=== PATIENT | male | born 1930 | race Caucasian/White ===

== ENCOUNTER 2019-01-04 10:11 | Emergency (ER) | payer MEDICARE ==
[2019-01-04] MEDS ORDERED: Sodium Chloride 0.9% 10 ML Syringe FLUSH PRN (10:39)
[2019-01-04 11:40] LABS: CHLORIDE,CL 87 mmol/L (98-107)
[2019-01-04 11:42] LABS: SODIUM,NA 119 mmol/L (136-145)
[2019-01-04] MEDS ORDERED: Sodium Chloride 0.9% 500 ML IV ONE (11:53)
--- NOTE | 2019-01-04 12:02 | EDM.PDOC ---
ED HPI GENERAL MEDICAL PROBLEM - General Chief Complaint: General Stated Complaint: WEEK,SORE THROAT, SLEEPS, ALOT LOW SODIUM Time Seen by Provider: 01/04/19 10:15 Source of Information: Reports: Patient - History of Present Illness INITIAL COMMENTS - FREE TEXT/NARRATIVE: She comes into the emergency department with family with complaint of weakness and fatigue. Patient has been feeling ill for the last 1-2 weeks. He states that he's been sleeping more, low energy, fatigue, not as hungry. Patient has been working worked up in the clinic in the last few days. They do not have any lab results from that. Family brought him in the emergency department this morning for he was having difficulty getting up out of his chair due to his weakness. He is also having increased amount of falls over the course the last few days due to his weakness. He and family deny any injury, loss of consciousness, chest pain or change in vision. Onset: Gradual Throat Pain Score (Numeric/FACES): 10 ED ROS GENERAL - Review of Systems Review Of Systems: See Below Constitutional: Reports: Weakness, Fatigue HEENT: Reports: No Symptoms Respiratory: Reports: Cough Cardiovascular: Reports: Dyspnea on Exertion, Lightheadedness Endocrine: Reports: Fatigue GI/Abdominal: Reports: No Symptoms : Reports: No Symptoms Musculoskeletal: Reports: No Symptoms Skin: Reports: No Symptoms Neurological: Reports: No Symptoms ED EXAM, GENERAL - Physical Exam Exam: See Below Exam Limited By: No Limitations General Appearance: Alert, WD/WN, No Apparent Distress Head: Atraumatic, Normocephalic Neck: Normal Inspection, Supple, Non-Tender, Full Range of Motion Respiratory/Chest: No Respiratory Distress, No Accessory Muscle Use, Decreased Breath Sounds, Crackles Cardiovascular: Normal Peripheral Pulses, Regular Rate, Rhythm GI/Abdominal: Normal Bowel Sounds, Soft, Non-Tender, No Distention, No Abnormal Bruit Back Exam: Normal Inspection, Full Range of Motion Extremities: Normal Inspection, Normal Range of Motion, Normal Capillary Refill Neurological: Alert, Oriented Psychiatric: Normal Affect, Normal Mood Skin Exam: Warm, Dry, Intact, Normal Color Course - Vital Signs Last Recorded V/S: Last Vital Signs Temp 36.1 C 01/04/19 10:20 Pulse 97 01/04/19 10:20 Resp 24 H 01/04/19 10:20 BP 139/83 01/04/19 10:20 Pulse Ox 98 01/04/19 10:20 - Orders/Labs/Meds Orders: Active Orders 24 hr Category Date Time Status Cardiac Monitoring [RC] . DIRECTED Care 01/04/19 10:39 Active EKG Documentation Completion [RC] STAT Care 01/04/19 10:39 Active Chest 1V Frontal [CR] Stat Exams 01/04/19 10:47 Ordered CULTURE STREP A CONFIRMATION [] Stat Lab 01/04/19 10:25 Results STREP SCRN A RAPID W CULT CONF [RM] Stat Lab 01/04/19 10:25 Results Furosemide [Lasix] Med 01/04/19 12:23 Once 40 mg IV ONETIME ONE Sodium Chloride 0.9% [Normal Saline] 500 ml Med 01/04/19 11:53 Active IV ONETIME Peripheral IV Insertion Adult [OM.PC] Stat Oth 01/04/19 10:39 Ordered Medication Orders Sodium Chloride (Normal Saline) 500 mls @ 500 mls/hr IV ONETIME ONE Stop: 01/04/19 12:52 Last Admin: 01/04/19 12:06 Dose: 500 mls/hr Labs: Laboratory Tests 01/04/19 01/04/19 Range/Units 10:59 10:59 WBC 7.6 (4.0-10.0) x10^3/uL RBC 2.65 L (4.5-6.0) x10^6/uL Hgb 9.4 L (14.0-18.0) g/dL Hct 27.7 L (40.0-52.0) % MCV 104.5 H (78.0-93.0) fL MCH 35.5 H (26.0-32.0) pg MCHC 33.9 (32.0-36.0) g/dL RDW Coeff of Christina 12.3 (10.0-15.0) % Plt Count 157 (130-400) x10^3/uL Neut % (Auto) 87.3 H (50.0-80.0) % Lymph % (Auto) 5.0 L (25.0-50.0) % [place] % (Auto) 7.3 (2.0-11.0) % Eos % (Auto) 0.3 (0.0-4.0) % Baso % (Auto) 0.1 L (0.2-1.2) % Sodium 119 L* (136-145) mmol/L Potassium 5.0 (3.5-5.1) mmol/L Chloride 87 L (98-107) mmol/L Carbon Dioxide 23 (21-32) mmol/L Anion Gap 14.0 (10-20) mmol/L BUN 18 (7-18) mg/dL Creatinine 0.8 (0.70-1.30) mg/dL Est Cr Clr Drug Dosing TNP Estimated GFR (MDRD) > 60 Glucose 143 H (74-106) mg/dL Calcium 8.8 (8.5-10.1) mg/dL Corrected Calcium 9.28 (8.5-10.1) mg/dL Total Bilirubin 1.0 (0.2-1.0) mg/dL AST 24 (15-37) U/L ALT 22 (16-63) U/L Alkaline Phosphatase 62 (46-116) U/L Troponin I 0.081 H* (<=0.056) ng/mL NT-Pro-B Natriuret Pep 96355 H (<=450) pg/mL Total Protein 6.5 (6.4-8.2) g/dL Albumin 3.4 (3.4-5.0) g/dL Globulin 3.1 Albumin/Globulin Ratio 1.10 Meds: Medications Generic Name Dose Route Start Last Admin Trade Name Freq PRN Reason Stop Dose Admin Sodium Chloride 500 mls @ 500 mls/hr 01/04/19 11:53 01/04/19 12:06 Normal Saline IV 01/04/19 12:52 500 mls/hr ONETIME ONE Administration Discontinued Medications Generic Name Dose Route Start Last Admin Trade Name Freq PRN Reason Stop Dose Admin Sodium Chloride 10 ml 01/04/19 10:39 Saline Flush FLUSH ASDIRECTED PRN Keep Vein Open Departure - Departure Time of Disposition: 12:35 Disposition: DC/Tfer to Acute Hospital 02 Condition: Good Clinical Impression: CHF, Congestive heart failure, Hyponatremia - Discharge Information *PRESCRIPTION DRUG MONITORING PROGRAM REVIEWED*: Not Applicable *COPY OF PRESCRIPTION DRUG MONITORING REPORT IN PATIENT TERE: Not Applicable Referrals: Jagdish Tilley MD [Primary Care Provider] - Forms: ED Department Discharge, Interfacility Transfer EMTALA - My Orders Last 24 Hours: My Active Orders 01/04/19 10:25 CULTURE STREP A CONFIRMATION [RM] Stat STREP SCRN A RAPID W CULT CONF [RM] Stat 01/04/19 10:39 Cardiac Monitoring [RC] . DIRECTED EKG Documentation Completion [RC] STAT Peripheral IV Insertion Adult [OM.PC] Stat 01/04/19 10:47 Chest 1V Frontal [CR] Stat 01/04/19 11:53 Sodium Chloride 0.9% [Normal Saline] 500 ml IV ONETIME 01/04/19 12:23 Furosemide [Lasix] 40 mg IV ONETIME ONE - Assessment/Plan Last 24 Hours: My Active Orders 01/04/19 10:25 CULTURE STREP A CONFIRMATION [RM] Stat STREP SCRN A RAPID W CULT CONF [RM] Stat 01/04/19 10:39 Cardiac Monitoring [RC] . DIRECTED EKG Documentation Completion [RC] STAT Peripheral IV Insertion Adult [OM.PC] Stat 01/04/19 10:47 Chest 1V Frontal [CR] Stat 01/04/19 11:53 Sodium Chloride 0.9% [Normal Saline] 500 ml IV ONETIME 01/04/19 12:23 Furosemide [Lasix] 40 mg IV ONETIME ONE Assessment:: 1. CHF 2. Fluid overload 3. weakness 4. Fatigue 5. hyponatremia Plan: 1. Labs completed in ER. results reviewed with the patient 2. x-ray of ches completed in ER. Results reviewed with the patient 3. Fluids hung sparinly due to crackles in the lungs. 4. Lasix given 40mg IV to help with the fluid overload. 5. EKG completed in ER. 6. Rapid strep completed. Negative results. 7. Consultation completed with Dr. Wu who is willing to accept care of this pt for further acute care management. Pt will be transported via ambulance to higher level of care. 8. All questions addressed prior to discharge.
[2019-01-04] MEDS ORDERED: Furosemide 40 MG/4 ML VIAL IV ONE (12:23)
--- NOTE | 2019-01-04 13:44 | CR ---
[id number] RAD/RAD Chest PA or AP 1V EXAM: RAD Chest PA or AP 1V INDICATION: COUGH. COMPARISON: None. DISCUSSION: The cardiomediastinal silhouette is enlarged. Central linda vascular congestion with patchy airspace opacifications bilaterally. Small right pleural effusion. Left chest wall cardiac conduction device. IMPRESSION: Findings suggestive of congestive heart failure exacerbation. Stiven Garcia DO 01/04/19 1343 Thank you for allowing us to participate in the care of your patient.
== END 2019-01-04 14:30 | disposition short-term general hospital (02) ==
LOC: VM.ED 10:11
DX: I50.9 Heart failure, unspecified (principal); E87.1 Hypo-osmolality and hyponatremia
CPT/HCPCS: 36415; 71045; 80053; 83880; 84484; 85025; 87081; 87880; 93005; 96374; 99285; J1940; J7040

== ENCOUNTER 2019-01-14 09:25 | Inpatient (IN) | payer MEDICARE ==
--- NOTE | 2019-01-14 15:56 | PCM.HP ---
H&P History of Present Illness - General Date of Service: 01/14/19 Admit Problem/Dx: Admission Diagnosis/Problem Admission Diagnosis/Problem CHF, Congestive heart failure Source of Information: Patient, Old Records - History of Present Illness Initial Comments - Free Text/Narative: Recent is a swing bed admission to get stronger again. Would like to return to assisted living with his . Was admitted in [place] for CHF and hyponatremia. Was found to have significant reduced ejection fraction. Had significant three-vessel disease by angiogram. Did not want to undergo high risk PCI or CABG. Was given some Lasix which helped his CHF and sodium. No chest pain or dyspnea currently. Still not very strongly getting around. Has known prostate cancer as well which appears resistant to Casodex, PSA continuing to go up. Past medical history, recurrent prostate cancer, osteoarthritis, coronary artery disease, osteopenia, hypertension, bradycardia, pacemaker, atrial fibrillation, heart failure, hyponatremia. Medications: Elliquis, Lipitor, iron, Lasix, lisinopril, Toprol, aspirin, Flomax , Ditropan, Casodex, prolia, Lupron. No known drug allergies Family history noncontributory Does not smoke, lives with . Previous systems: Denies fever denies cough denies chest pain denies abdominal pain denies vomiting denies dysuria denies peripheral edema Vital signs stable alert oriented male no acute distress somewhat ashen, heart regular rate and rhythm no murmurs or gallops, lungs are clear bilaterally. Abdomen soft nontender, extremities warm well perfused without edema. 1. Acute on chronic systolic heart failure with underlying triple-vessel disease. Declined PCI/CABG. Conservative management with medication. Continue with lisinopril 2.5 mg twice daily.Was started on Metoprolol ER.Continue with lisinopril and diuresis and see how he does. 2. Atrial fibrillation, on apixaban. V-paced. 3. Coronary artery disease, on aspirin 81 mg daily. 4. Dyslipidemia, on Lipitor 40 mg daily, continue. 5. Coronary artery disease.ASA, BB, STATINS 6. BPH, on tamsulosin, continue. 7. History of prostate cancer, on Casodex, continue. PSA continued to go up. 8. Hyponatremia improved, likely combo of CHF, meds, age, CA. Monitor. 9. Consult SW re: palliative care. Unclear if meets hospice criteria yet for Dx of CHF, CAD, CA. 10. Consult PT for strength. - Related Data Allergies/Adverse Reactions: Allergies Allergy/AdvReac Type Severity Reaction Status Date / Time No Known Allergies Allergy Verified 01/14/19 09:35 Home Medications: Home Meds Acetaminophen 650 mg PO Q6H PRN 01/14/19 [History] Apixaban [Eliquis] 5 mg PO BID 01/14/19 [History] Aspirin [Halfprin] 81 mg PO DAILY 01/14/19 [History] Bicalutamide [Casodex] 50 mg PO DAILY 01/14/19 [History] Calcium Citrate/Vitamin D3 [Citracal + D Maximum Caplet] 1 each PO BID 01/14/19 [History] Cholecalciferol (Vitamin D3) [Vitamin D3] 1,000 unit PO DAILY 01/14/19 [History] Cyanocobalamin (Vitamin B-12) [Vitamin B-12] 500 mcg PO DAILY 01/14/19 [History] Docusate Sodium 200 mg PO DAILY 01/14/19 [History] Ferrous Sulfate 325 mg PO BID 01/14/19 [History] Furosemide 60 mg PO BID 01/14/19 [History] Gluc 2KCl/Chondr/Conner Hy/Hy Ac [Glucosamine & Chondroitin Cap] 1 tab PO TID [History] Lisinopril 2.5 mg PO BID 01/14/19 [History] Metoprolol Succinate [Toprol XL] 12.5 mg PO DAILY 01/14/19 [History] [place]-3 Fatty Acids/Fish Oil [Fish Oil 1,000 mg Softgel] 1 each PO TID 01/14/19 [History] Oxybutynin 5 mg PO BEDTIME 01/14/19 [History] Tamsulosin [Tamsulosin 24 Hr] 0.4 mg PO DAILY 01/14/19 [History] Ubidecarenone [Co Q-10] 200 mg PO DAILY 01/14/19 [History] Vitamin B6-pyridOXINE [Vitamin B6] 50 mg PO DAILY 01/14/19 [History] atorvaSTATin [Lipitor] 40 mg PO BEDTIME 01/14/19 [History] Past Medical History HEENT History: Reports: Glaucoma Cardiovascular History: Reports: CAD, Heart Failure, High Cholesterol, Hypertension, Pacemaker, Stents, Other (See Below) Other Cardiovascular History: bradycardia Genitourinary History: Reports: Prostate Disorder, Other (See Below) Other Genitourinary History: urinary frequency; lower urinary tract symptoms Musculoskeletal History: Reports: Osteoarthritis, Other (See Below) Other Musculoskeletal History: lower knee pain; osteopenia Endocrine/Metabolic History: Reports: Osteopenia Oncologic (Cancer) History: Reports: Prostate Dermatologic History: Reports: Other (See Below) Other Dermatologic History: actinic keratosis - Infectious Disease History Infectious Disease History: Reports: MRSA - Past Surgical History HEENT Surgical History: Reports: Cataract Surgery Cardiovascular Surgical History: Reports: Coronary Artery Stent, Other (See Below) Other Cardiovascular Surgeries/Procedures: angioplasty Male Surgical History: Reports: Prostate Biopsy, Other (See Below) Other Male Surgeries/Procedures: breast biopsy Social & Family History - Tobacco Use Smoking Status *Q: Never Smoker Second Hand Smoke Exposure: No - Caffeine Use Caffeine Use: Reports: Coffee - Alcohol Use Days Per Week of Alcohol Use: 7 Number of Drinks Per Day: 1 Total Drinks Per Week: 7 - Recreational Drug Use Recreational Drug Use: No H&P Review of Systems - Review of Systems: Review Of Systems: See Below Exam - Exam Exam: See Below - Vital Signs Vital Signs: Last Vital Signs Temp 36.6 C 01/14/19 11:31 Pulse 65 01/14/19 11:31 Resp 32 H 01/14/19 11:31 BP 102/58 L 01/14/19 11:31 Pulse Ox 97 01/14/19 11:31 Weight: 90.945 kg Problem List Initiated/Reviewed/Updated: Yes Orders Last 24hrs: Active Orders 24 hr Category Date Time Status Admission Status [Patient Status] [ADT] Routine ADT 01/14/19 09:31 Active Activity as Tolerated [RC] .Routine Care 01/14/19 12:38 Active OT Evaluation and Treatment [CONS] Routine Cons 01/14/19 09:34 Active PT Evaluation and Treatment [CONS] Routine Cons 01/14/19 09:33 Active Fluid Restriction [DIET] Diet 01/14/19 Lunch Active Heart Healthy Diet [DIET] Diet 01/14/19 Lunch Active Code Status [Resuscitation Status] Routine Resus Stat 01/14/19 12:39 Ordered
[2019-01-14] MEDS: Apixaban 2.5 MG Tab PO SCH (19:17)
[2019-01-14] MEDS: Fish Oil/Omega-3 Fatty Acids 1 Gm Cap PO SCH (19:18)
[2019-01-14] MEDS: Multivitamin, Stress Formula with Zinc Tab PO SCH (19:18)
[2019-01-14] MEDS: Oxybutynin 5 MG Tab PO SCH (19:18)
[2019-01-14] MEDS: Lisinopril 2.5 MG Tab PO SCH (19:18)
[2019-01-14] MEDS: Ferrous Sulfate 325 MG Tab PO SCH (19:19)
[2019-01-14] MEDS: Calcium Citrate/Vitamin D3 315 MG-250 Unit Tab PO SCH (19:19)
[2019-01-14] MEDS: atorvaSTATin 40 MG Tab PO SCH (19:19)
[2019-01-15] MEDS: Furosemide 20 MG Tab PO SCH ×2 (05:22→14:37)
[2019-01-15] MEDS: Apixaban 2.5 MG Tab PO SCH ×2 (07:42→20:35)
[2019-01-15] MEDS: Cholecalciferol (Vitamin D3) 1,000 Unit Tab PO SCH (07:43)
[2019-01-15] MEDS: Metoprolol Succinate 25 MG Tab.ER PO SCH (07:43)
[2019-01-15] MEDS: Lisinopril 2.5 MG Tab PO SCH ×2 (07:43→20:36)
[2019-01-15] MEDS: Vitamin B6-pyridOXINE 50 MG Tab PO SCH (07:43)
[2019-01-15] MEDS: Aspirin 81 MG Tab.EC PO SCH (07:43)
[2019-01-15] MEDS: Calcium Citrate/Vitamin D3 315 MG-250 Unit Tab PO SCH ×2 (07:43→20:35)
[2019-01-15] MEDS: Fish Oil/Omega-3 Fatty Acids 1 Gm Cap PO SCH ×3 (07:43→20:36)
[2019-01-15] MEDS: Ferrous Sulfate 325 MG Tab PO SCH ×2 (07:44→20:35)
[2019-01-15] MEDS: Docusate Sodium 100 MG Cap PO SCH (07:44)
[2019-01-15] MEDS: Tamsulosin 0.4 MG Cap.ER PO SCH (07:44)
[2019-01-15] MEDS: Multivitamin, Stress Formula with Zinc Tab PO SCH ×3 (07:44→20:35)
[2019-01-15] MEDS: Cyanocobalamin (Vitamin B12) 250 MCG Tab PO SCH (07:44)
[2019-01-15] MEDS: atorvaSTATin 40 MG Tab PO SCH (20:35)
[2019-01-15] MEDS: Oxybutynin 5 MG Tab PO SCH (20:35)
[2019-01-16] MEDS: Furosemide 20 MG Tab PO SCH ×2 (05:40→13:22)
[2019-01-16] MEDS: Multivitamin, Stress Formula with Zinc Tab PO SCH ×3 (08:07→19:33)
[2019-01-16] MEDS: Metoprolol Succinate 25 MG Tab.ER PO SCH (08:07)
[2019-01-16] MEDS: Cyanocobalamin (Vitamin B12) 250 MCG Tab PO SCH (08:07)
[2019-01-16] MEDS: Tamsulosin 0.4 MG Cap.ER PO SCH (08:07)
[2019-01-16] MEDS: Apixaban 2.5 MG Tab PO SCH ×2 (08:07→19:33)
[2019-01-16] MEDS: Docusate Sodium 100 MG Cap PO SCH (08:08)
[2019-01-16] MEDS: Ferrous Sulfate 325 MG Tab PO SCH ×2 (08:08→19:33)
[2019-01-16] MEDS: Fish Oil/Omega-3 Fatty Acids 1 Gm Cap PO SCH ×3 (08:08→19:33)
[2019-01-16] MEDS: Cholecalciferol (Vitamin D3) 1,000 Unit Tab PO SCH (08:08)
[2019-01-16] MEDS: Calcium Citrate/Vitamin D3 315 MG-250 Unit Tab PO SCH ×2 (08:08→19:33)
[2019-01-16] MEDS: Aspirin 81 MG Tab.EC PO SCH (08:08)
[2019-01-16] MEDS: Lisinopril 2.5 MG Tab PO SCH ×2 (08:08→19:33)
[2019-01-16] MEDS: Vitamin B6-pyridOXINE 50 MG Tab PO SCH (08:08)
[2019-01-16] MEDS: atorvaSTATin 40 MG Tab PO SCH (19:33)
[2019-01-16] MEDS: Oxybutynin 5 MG Tab PO SCH (19:33)
[2019-01-17] MEDS: Furosemide 20 MG Tab PO SCH ×2 (05:26→14:10)
[2019-01-17] MEDS: Aspirin 81 MG Tab.EC PO SCH (08:30)
[2019-01-17] MEDS: Multivitamin, Stress Formula with Zinc Tab PO SCH ×3 (08:30→20:47)
[2019-01-17] MEDS: Cyanocobalamin (Vitamin B12) 250 MCG Tab PO SCH (08:30)
[2019-01-17] MEDS: Lisinopril 2.5 MG Tab PO SCH ×2 (08:30→20:47)
[2019-01-17] MEDS: Apixaban 2.5 MG Tab PO SCH ×2 (08:30→20:47)
[2019-01-17] MEDS: Calcium Citrate/Vitamin D3 315 MG-250 Unit Tab PO SCH ×2 (08:30→20:47)
[2019-01-17] MEDS: Metoprolol Succinate 25 MG Tab.ER PO SCH (08:30)
[2019-01-17] MEDS: Ferrous Sulfate 325 MG Tab PO SCH ×2 (08:31→20:47)
[2019-01-17] MEDS: Cholecalciferol (Vitamin D3) 1,000 Unit Tab PO SCH (08:31)
[2019-01-17] MEDS: Tamsulosin 0.4 MG Cap.ER PO SCH (08:31)
[2019-01-17] MEDS: Vitamin B6-pyridOXINE 50 MG Tab PO SCH (08:31)
[2019-01-17] MEDS: Docusate Sodium 100 MG Cap PO SCH (08:31)
[2019-01-17] MEDS: Fish Oil/Omega-3 Fatty Acids 1 Gm Cap PO SCH ×3 (08:31→20:47)
[2019-01-17] MEDS: UBIDECARENONE 200 MG PO SCH ×3 (11:50→11:51)
[2019-01-17] MEDS: Oxybutynin 5 MG Tab PO SCH (20:47)
[2019-01-17] MEDS: atorvaSTATin 40 MG Tab PO SCH (20:47)
[2019-01-18] MEDS: Furosemide 20 MG Tab PO SCH ×2 (05:54→13:37)
[2019-01-18] MEDS: Metoprolol Succinate 25 MG Tab.ER PO SCH (08:11)
[2019-01-18] MEDS: Ferrous Sulfate 325 MG Tab PO SCH ×2 (08:11→20:06)
[2019-01-18] MEDS: Vitamin B6-pyridOXINE 50 MG Tab PO SCH (08:11)
[2019-01-18] MEDS: Fish Oil/Omega-3 Fatty Acids 1 Gm Cap PO SCH ×3 (08:11→20:06)
[2019-01-18] MEDS: Docusate Sodium 100 MG Cap PO SCH (08:11)
[2019-01-18] MEDS: Multivitamin, Stress Formula with Zinc Tab PO SCH ×3 (08:12→20:06)
[2019-01-18] MEDS: Cholecalciferol (Vitamin D3) 1,000 Unit Tab PO SCH (08:12)
[2019-01-18] MEDS: Cyanocobalamin (Vitamin B12) 250 MCG Tab PO SCH (08:12)
[2019-01-18] MEDS: Calcium Citrate/Vitamin D3 315 MG-250 Unit Tab PO SCH ×2 (08:12→20:05)
[2019-01-18] MEDS: Aspirin 81 MG Tab.EC PO SCH (08:13)
[2019-01-18] MEDS: Apixaban 2.5 MG Tab PO SCH ×2 (08:13→20:06)
[2019-01-18] MEDS: Tamsulosin 0.4 MG Cap.ER PO SCH (08:13)
[2019-01-18] MEDS: Lisinopril 2.5 MG Tab PO SCH ×2 (08:28→20:06)
[2019-01-18] MEDS: UBIDECARENONE 200 MG PO SCH (08:28)
[2019-01-18] MEDS: Acetaminophen 325 MG Tab PO PRN (17:21)
[2019-01-18] MEDS ORDERED: Sodium Phosphate,Monobasic/Sodium Phosphate,Dibasic Enema 133 ML Bottle RECTAL ONE ×2 (18:49→19:39)
[2019-01-18] MEDS: atorvaSTATin 40 MG Tab PO SCH (20:06)
[2019-01-18] MEDS: Oxybutynin 5 MG Tab PO SCH (20:06)
[2019-01-19] MEDS: Furosemide 20 MG Tab PO SCH ×2 (05:54→13:30)
[2019-01-19] MEDS: Calcium Citrate/Vitamin D3 315 MG-250 Unit Tab PO SCH ×2 (08:33→19:47)
[2019-01-19] MEDS: Aspirin 81 MG Tab.EC PO SCH (08:33)
[2019-01-19] MEDS: Apixaban 2.5 MG Tab PO SCH ×2 (08:33→19:47)
[2019-01-19] MEDS: Cyanocobalamin (Vitamin B12) 250 MCG Tab PO SCH (08:37)
[2019-01-19] MEDS: Multivitamin, Stress Formula with Zinc Tab PO SCH ×3 (08:38→19:47)
[2019-01-19] MEDS: Vitamin B6-pyridOXINE 50 MG Tab PO SCH (08:38)
[2019-01-19] MEDS: Cholecalciferol (Vitamin D3) 1,000 Unit Tab PO SCH (08:39)
[2019-01-19] MEDS: Tamsulosin 0.4 MG Cap.ER PO SCH (08:39)
[2019-01-19] MEDS: Docusate Sodium 100 MG Cap PO SCH (08:40)
[2019-01-19] MEDS: Fish Oil/Omega-3 Fatty Acids 1 Gm Cap PO SCH ×3 (08:40→19:47)
[2019-01-19] MEDS: Ferrous Sulfate 325 MG Tab PO SCH ×2 (08:41→19:48)
[2019-01-19] MEDS: Acetaminophen 325 MG Tab PO PRN (08:41)
[2019-01-19] MEDS: UBIDECARENONE 200 MG PO SCH (08:46)
[2019-01-19] MEDS: Lisinopril 2.5 MG Tab PO SCH ×2 (10:52→19:47)
[2019-01-19] MEDS: Metoprolol Succinate 25 MG Tab.ER PO SCH (10:52)
[2019-01-19] MEDS: atorvaSTATin 40 MG Tab PO SCH (19:47)
[2019-01-19] MEDS: Oxybutynin 5 MG Tab PO SCH (19:48)
[2019-01-20] MEDS: Furosemide 20 MG Tab PO SCH ×2 (05:26→14:33)
[2019-01-20] MEDS: Apixaban 2.5 MG Tab PO SCH ×2 (08:52→20:54)
[2019-01-20] MEDS: Ferrous Sulfate 325 MG Tab PO SCH ×2 (08:52→20:54)
[2019-01-20] MEDS: Calcium Citrate/Vitamin D3 315 MG-250 Unit Tab PO SCH ×2 (08:53→20:54)
[2019-01-20] MEDS: Aspirin 81 MG Tab.EC PO SCH (08:53)
[2019-01-20] MEDS: Lisinopril 2.5 MG Tab PO SCH ×2 (08:53→20:53)
[2019-01-20] MEDS: Vitamin B6-pyridOXINE 50 MG Tab PO SCH (08:53)
[2019-01-20] MEDS: Multivitamin, Stress Formula with Zinc Tab PO SCH ×3 (08:54→20:55)
[2019-01-20] MEDS: Tamsulosin 0.4 MG Cap.ER PO SCH (08:54)
[2019-01-20] MEDS: Docusate Sodium 100 MG Cap PO SCH (08:54)
[2019-01-20] MEDS: Metoprolol Succinate 25 MG Tab.ER PO SCH (08:54)
[2019-01-20] MEDS: Fish Oil/Omega-3 Fatty Acids 1 Gm Cap PO SCH ×3 (08:54→20:54)
[2019-01-20] MEDS: Cholecalciferol (Vitamin D3) 1,000 Unit Tab PO SCH (08:54)
[2019-01-20] MEDS: Cyanocobalamin (Vitamin B12) 250 MCG Tab PO SCH (08:54)
[2019-01-20] MEDS: UBIDECARENONE 200 MG PO SCH (12:10)
[2019-01-20] MEDS: Oxybutynin 5 MG Tab PO SCH (20:54)
[2019-01-20] MEDS: atorvaSTATin 40 MG Tab PO SCH (20:54)
[2019-01-21] MEDS: Furosemide 20 MG Tab PO SCH ×2 (06:04→15:11)
[2019-01-21] MEDS: Cholecalciferol (Vitamin D3) 1,000 Unit Tab PO SCH (08:02)
[2019-01-21] MEDS: Aspirin 81 MG Tab.EC PO SCH (08:02)
[2019-01-21] MEDS: Apixaban 2.5 MG Tab PO SCH ×2 (08:02→20:13)
[2019-01-21] MEDS: Cyanocobalamin (Vitamin B12) 250 MCG Tab PO SCH (08:02)
[2019-01-21] MEDS: Calcium Citrate/Vitamin D3 315 MG-250 Unit Tab PO SCH ×2 (08:02→20:13)
[2019-01-21] MEDS: Multivitamin, Stress Formula with Zinc Tab PO SCH ×3 (08:02→20:13)
[2019-01-21] MEDS: Docusate Sodium 100 MG Cap PO SCH (08:02)
[2019-01-21] MEDS: Lisinopril 2.5 MG Tab PO SCH ×2 (08:02→20:13)
[2019-01-21] MEDS: Ferrous Sulfate 325 MG Tab PO SCH ×2 (08:03→20:12)
[2019-01-21] MEDS: Vitamin B6-pyridOXINE 50 MG Tab PO SCH (08:03)
[2019-01-21] MEDS: Tamsulosin 0.4 MG Cap.ER PO SCH (08:03)
[2019-01-21] MEDS: Metoprolol Succinate 25 MG Tab.ER PO SCH (08:03)
[2019-01-21] MEDS: Fish Oil/Omega-3 Fatty Acids 1 Gm Cap PO SCH ×3 (08:03→20:12)
[2019-01-21] MEDS: UBIDECARENONE 200 MG PO SCH (08:04)
[2019-01-21] MEDS: atorvaSTATin 40 MG Tab PO SCH (20:13)
[2019-01-21] MEDS: Oxybutynin 5 MG Tab PO SCH (20:13)
[2019-01-22] MEDS: Furosemide 20 MG Tab PO SCH ×2 (06:06→14:44)
[2019-01-22] MEDS: Multivitamin, Stress Formula with Zinc Tab PO SCH (09:28)
[2019-01-22] MEDS: Docusate Sodium 100 MG Cap PO SCH (09:28)
[2019-01-22] MEDS: Calcium Citrate/Vitamin D3 315 MG-250 Unit Tab PO SCH (09:28)
[2019-01-22] MEDS: Lisinopril 2.5 MG Tab PO SCH ×2 (09:28→20:11)
[2019-01-22] MEDS: Aspirin 81 MG Tab.EC PO SCH (09:28)
[2019-01-22] MEDS: Vitamin B6-pyridOXINE 50 MG Tab PO SCH (09:28)
[2019-01-22] MEDS: Cyanocobalamin (Vitamin B12) 250 MCG Tab PO SCH (09:29)
[2019-01-22] MEDS: Tamsulosin 0.4 MG Cap.ER PO SCH (09:29)
[2019-01-22] MEDS: Fish Oil/Omega-3 Fatty Acids 1 Gm Cap PO SCH (09:29)
[2019-01-22] MEDS: Ferrous Sulfate 325 MG Tab PO SCH ×2 (09:29→20:10)
[2019-01-22] MEDS: Metoprolol Succinate 25 MG Tab.ER PO SCH (09:29)
[2019-01-22] MEDS: Apixaban 2.5 MG Tab PO SCH ×2 (09:30→20:10)
[2019-01-22] MEDS: UBIDECARENONE 200 MG PO SCH (09:31)
[2019-01-22] MEDS: Cholecalciferol (Vitamin D3) 1,000 Unit Tab PO SCH (09:31)
[2019-01-22] MEDS: atorvaSTATin 40 MG Tab PO SCH (20:10)
[2019-01-22] MEDS: Oxybutynin 5 MG Tab PO SCH (20:11)
[2019-01-23] MEDS: Furosemide 20 MG Tab PO SCH ×2 (06:02→14:02)
[2019-01-23] MEDS: UBIDECARENONE 200 MG PO SCH (08:42)
[2019-01-23] MEDS: Docusate Sodium 100 MG Cap PO SCH (08:43)
[2019-01-23] MEDS: Acetaminophen 325 MG Tab PO PRN (08:43)
[2019-01-23] MEDS: Cyanocobalamin (Vitamin B12) 250 MCG Tab PO SCH (08:43)
[2019-01-23] MEDS: Tamsulosin 0.4 MG Cap.ER PO SCH (08:43)
[2019-01-23] MEDS: Cholecalciferol (Vitamin D3) 1,000 Unit Tab PO SCH (08:43)
[2019-01-23] MEDS: Apixaban 2.5 MG Tab PO SCH ×2 (08:43→20:40)
[2019-01-23] MEDS: Metoprolol Succinate 25 MG Tab.ER PO SCH (08:44)
[2019-01-23] MEDS: Vitamin B6-pyridOXINE 50 MG Tab PO SCH (08:44)
[2019-01-23] MEDS: Aspirin 81 MG Tab.EC PO SCH (08:44)
[2019-01-23] MEDS: Lisinopril 2.5 MG Tab PO SCH ×2 (08:44→20:46)
[2019-01-23] MEDS: Ferrous Sulfate 325 MG Tab PO SCH ×2 (08:44→20:40)
[2019-01-23] MEDS: atorvaSTATin 40 MG Tab PO SCH (20:40)
[2019-01-23] MEDS: Oxybutynin 5 MG Tab PO SCH (20:40)
[2019-01-24] MEDS: Furosemide 20 MG Tab PO SCH ×2 (05:41→14:31)
[2019-01-24] MEDS: UBIDECARENONE 200 MG PO SCH (09:01)
[2019-01-24] MEDS: Docusate Sodium 100 MG Cap PO SCH (09:01)
[2019-01-24] MEDS: Vitamin B6-pyridOXINE 50 MG Tab PO SCH (09:02)
[2019-01-24] MEDS: Cyanocobalamin (Vitamin B12) 250 MCG Tab PO SCH (09:02)
[2019-01-24] MEDS: Aspirin 81 MG Tab.EC PO SCH (09:02)
[2019-01-24] MEDS: Acetaminophen 325 MG Tab PO PRN (09:03)
[2019-01-24] MEDS: Apixaban 2.5 MG Tab PO SCH ×2 (09:03→19:52)
[2019-01-24] MEDS: Lisinopril 2.5 MG Tab PO SCH ×2 (09:03→19:53)
[2019-01-24] MEDS: Tamsulosin 0.4 MG Cap.ER PO SCH (09:03)
[2019-01-24] MEDS: Ferrous Sulfate 325 MG Tab PO SCH ×2 (09:03→19:52)
[2019-01-24] MEDS: Metoprolol Succinate 25 MG Tab.ER PO SCH (09:04)
[2019-01-24] MEDS: Cholecalciferol (Vitamin D3) 1,000 Unit Tab PO SCH (09:04)
[2019-01-24] MEDS: atorvaSTATin 40 MG Tab PO SCH (19:52)
[2019-01-24] MEDS: Oxybutynin 5 MG Tab PO SCH (19:53)
[2019-01-25] MEDS: Furosemide 20 MG Tab PO SCH ×2 (05:22→14:00)
[2019-01-25] MEDS: Apixaban 2.5 MG Tab PO SCH ×2 (07:57→21:42)
[2019-01-25] MEDS: Ferrous Sulfate 325 MG Tab PO SCH ×2 (07:57→21:42)
[2019-01-25] MEDS: Docusate Sodium 100 MG Cap PO SCH (07:58)
[2019-01-25] MEDS: Cyanocobalamin (Vitamin B12) 250 MCG Tab PO SCH (07:58)
[2019-01-25] MEDS: Aspirin 81 MG Tab.EC PO SCH (07:58)
[2019-01-25] MEDS: Cholecalciferol (Vitamin D3) 1,000 Unit Tab PO SCH (07:58)
[2019-01-25] MEDS: Lisinopril 2.5 MG Tab PO SCH ×2 (07:58→21:43)
[2019-01-25] MEDS: Vitamin B6-pyridOXINE 50 MG Tab PO SCH (07:58)
[2019-01-25] MEDS: Tamsulosin 0.4 MG Cap.ER PO SCH (07:58)
[2019-01-25] MEDS: Metoprolol Succinate 25 MG Tab.ER PO SCH (07:59)
[2019-01-25] MEDS: UBIDECARENONE 200 MG PO SCH (08:00)
[2019-01-25] MEDS: Acetaminophen 325 MG Tab PO PRN (21:41)
[2019-01-25] MEDS: Oxybutynin 5 MG Tab PO SCH (21:42)
[2019-01-25] MEDS: atorvaSTATin 40 MG Tab PO SCH (21:42)
[2019-01-26] MEDS: Furosemide 20 MG Tab PO SCH ×2 (06:01→14:21)
[2019-01-26] MEDS: Tamsulosin 0.4 MG Cap.ER PO SCH (07:26)
[2019-01-26] MEDS: Vitamin B6-pyridOXINE 50 MG Tab PO SCH (07:26)
[2019-01-26] MEDS: Cholecalciferol (Vitamin D3) 1,000 Unit Tab PO SCH (07:26)
[2019-01-26] MEDS: Apixaban 2.5 MG Tab PO SCH ×2 (07:26→19:30)
[2019-01-26] MEDS: UBIDECARENONE 200 MG PO SCH (07:27)
[2019-01-26] MEDS: Ferrous Sulfate 325 MG Tab PO SCH ×2 (07:27→19:30)
[2019-01-26] MEDS: Aspirin 81 MG Tab.EC PO SCH (07:27)
[2019-01-26] MEDS: Cyanocobalamin (Vitamin B12) 250 MCG Tab PO SCH (07:27)
[2019-01-26] MEDS: Docusate Sodium 100 MG Cap PO SCH (07:27)
[2019-01-26] MEDS: Lisinopril 2.5 MG Tab PO SCH ×3 (11:53→19:45)
[2019-01-26] MEDS: Metoprolol Succinate 25 MG Tab.ER PO SCH (11:54)
[2019-01-26] MEDS: Oxybutynin 5 MG Tab PO SCH (19:30)
[2019-01-26] MEDS: atorvaSTATin 40 MG Tab PO SCH (19:30)
[2019-01-27] MEDS: Furosemide 20 MG Tab PO SCH ×2 (05:48→14:36)
[2019-01-27] MEDS: Ferrous Sulfate 325 MG Tab PO SCH ×2 (08:02→20:01)
[2019-01-27] MEDS: Aspirin 81 MG Tab.EC PO SCH (08:02)
[2019-01-27] MEDS: Vitamin B6-pyridOXINE 50 MG Tab PO SCH (08:02)
[2019-01-27] MEDS: Cholecalciferol (Vitamin D3) 1,000 Unit Tab PO SCH (08:02)
[2019-01-27] MEDS: Docusate Sodium 100 MG Cap PO SCH (08:02)
[2019-01-27] MEDS: Tamsulosin 0.4 MG Cap.ER PO SCH (08:02)
[2019-01-27] MEDS: Apixaban 2.5 MG Tab PO SCH ×2 (08:03→19:59)
[2019-01-27] MEDS: UBIDECARENONE 200 MG PO SCH (08:03)
[2019-01-27] MEDS: Acetaminophen 325 MG Tab PO PRN (08:03)
[2019-01-27] MEDS: Cyanocobalamin (Vitamin B12) 250 MCG Tab PO SCH ×2 (08:04→14:36)
[2019-01-27] MEDS: Metoprolol Succinate 25 MG Tab.ER PO SCH (08:04)
[2019-01-27] MEDS: Lisinopril 2.5 MG Tab PO SCH ×2 (08:04→19:57)
[2019-01-27] MEDS: atorvaSTATin 40 MG Tab PO SCH (19:56)
[2019-01-27] MEDS: Oxybutynin 5 MG Tab PO SCH (19:56)
[2019-01-28] MEDS: Furosemide 20 MG Tab PO SCH ×2 (06:26→14:38)
[2019-01-28] MEDS ORDERED: Calcium Carbonate 750 MG Tab.Chew PO PRN (07:37)
[2019-01-28] MEDS: Ferrous Sulfate 325 MG Tab PO SCH ×2 (08:07→20:54)
[2019-01-28] MEDS: Vitamin B6-pyridOXINE 50 MG Tab PO SCH (08:07)
[2019-01-28] MEDS: Cholecalciferol (Vitamin D3) 1,000 Unit Tab PO SCH (08:07)
[2019-01-28] MEDS: Tamsulosin 0.4 MG Cap.ER PO SCH (08:07)
[2019-01-28] MEDS: Aspirin 81 MG Tab.EC PO SCH (08:07)
[2019-01-28] MEDS: Docusate Sodium 100 MG Cap PO SCH (08:07)
[2019-01-28] MEDS: Apixaban 2.5 MG Tab PO SCH ×2 (08:07→20:54)
[2019-01-28] MEDS: Acetaminophen 325 MG Tab PO PRN (08:07)
[2019-01-28] MEDS: Cyanocobalamin (Vitamin B12) 250 MCG Tab PO SCH (08:07)
[2019-01-28] MEDS: Metoprolol Succinate 25 MG Tab.ER PO SCH (08:08)
[2019-01-28] MEDS: Lisinopril 2.5 MG Tab PO SCH ×2 (08:08→20:57)
[2019-01-28] MEDS: UBIDECARENONE 200 MG PO SCH (08:08)
[2019-01-28 12:37] LABS: ANION GAP 18.4 mmol/L (10-20)
[2019-01-28] MEDS: Oxybutynin 5 MG Tab PO SCH (20:54)
[2019-01-28] MEDS: atorvaSTATin 40 MG Tab PO SCH (20:54)
[2019-01-29] MEDS: UBIDECARENONE 200 MG PO SCH (08:30)
[2019-01-29] MEDS: Ferrous Sulfate 325 MG Tab PO SCH ×2 (08:31→20:42)
[2019-01-29] MEDS: Cyanocobalamin (Vitamin B12) 250 MCG Tab PO SCH (08:31)
[2019-01-29] MEDS: Vitamin B6-pyridOXINE 50 MG Tab PO SCH (08:31)
[2019-01-29] MEDS: Acetaminophen 325 MG Tab PO PRN (08:31)
[2019-01-29] MEDS: Docusate Sodium 100 MG Cap PO SCH (08:31)
[2019-01-29] MEDS: Tamsulosin 0.4 MG Cap.ER PO SCH (08:31)
[2019-01-29] MEDS: Apixaban 2.5 MG Tab PO SCH ×2 (08:31→20:42)
[2019-01-29] MEDS: Cholecalciferol (Vitamin D3) 1,000 Unit Tab PO SCH (08:31)
[2019-01-29] MEDS: Aspirin 81 MG Tab.EC PO SCH (08:31)
[2019-01-29] MEDS: Metoprolol Succinate 25 MG Tab.ER PO SCH (08:32)
[2019-01-29] MEDS: Lisinopril 2.5 MG Tab PO SCH ×2 (08:32→20:41)
--- NOTE | 2019-01-29 13:54 | PCM.DCSUM1 ---
Discharge Summary - Hospital Course Free Text/Narrative:: Discharge diagnoses: Congestive heart failure, hypernatremia, coronary artery disease three-vessel, resistant prostate cancer, deconditioning. History present illness: Patient was admitted to swing bed for rehabilitation. He feels his strength is generally back at baseline. He was hyponatremic when admitted in [place]. Found to be secondary to CHF. Had three-vessel disease by angiogram. Because of his advanced age and prostate cancer they opted not to undergo aggressive intervention. This would've been a high risk PCI versus CABG. He did develop some hypotension here. Recheck of his labs showed he become dehydrated with prerenal increase of his creatinine. We will back off on Lasix discharge we will try to slowly add back some of his CHF antihypertensives. The can monitor his blood pressure and weight at assisted living and we will see him for follow-up in clinic with chemistry in about two weeks. Diagnosis: Stroke: No - Discharge Data Discharge Date: 01/30/19 Discharge Disposition: Home, Self-Care 01 Condition: Fair - Patient Summary/Data Consults: Consultations 01/14/19 09:33 PT Evaluation and Treatment [CONS] Routine 01/14/19 09:34 OT Evaluation and Treatment [CONS] Routine 01/14/19 16:19 Consult to Case Management/Racing Secretary [CONS] Routine - Patient Instructions Diet: Usual Diet as Tolerated Other/Special Instructions: Monitor blood pressure every 1-2 days at assisted living. Weight every 3-7 days. Restart heart failure/blood pressure medicines at lower-dose, 12.5 Toprol once daily, lisinopril 2.5 once daily. Decrease Lasix dose to 40 mg once daily. Return to clinic in two weeks for recheck of kidney and sodium labs, weight and blood pressure. Sooner if feeling worse. - Discharge Plan *PRESCRIPTION DRUG MONITORING PROGRAM REVIEWED*: Not Applicable *COPY OF PRESCRIPTION DRUG MONITORING REPORT IN PATIENT TERE: Not Applicable Prescriptions/Med Rec: Furosemide 40 mg PO DAILY #30 tablet Lisinopril [Prinivil] 2.5 mg PO DAILY #30 tablet Home Medications: Home Meds Acetaminophen 650 mg PO Q6H PRN 01/14/19 [History] Apixaban [Eliquis] 5 mg PO BID 01/14/19 [History] Aspirin [Halfprin] 81 mg PO DAILY 01/14/19 [History] Bicalutamide [Casodex] 50 mg PO DAILY 01/14/19 [History] Calcium Citrate/Vitamin D3 [Citracal + D Maximum Caplet] 1 each PO BID 01/14/19 [History] Cholecalciferol (Vitamin D3) [Vitamin D3] 1,000 unit PO DAILY 01/14/19 [History] Cyanocobalamin (Vitamin B-12) [Vitamin B-12] 500 mcg PO DAILY 01/14/19 [History] Docusate Sodium 200 mg PO DAILY 01/14/19 [History] Ferrous Sulfate 325 mg PO BID 01/14/19 [History] Gluc 2KCl/Chondr/Conner Hy/Hy Ac [Glucosamine & Chondroitin Cap] 1 tab PO TID [History] Metoprolol Succinate [Toprol XL] 12.5 mg PO DAILY 01/14/19 [History] [place]-3 Fatty Acids/Fish Oil [Fish Oil 1,000 mg Softgel] 1 each PO TID 01/14/19 [History] Oxybutynin 5 mg PO BEDTIME 01/14/19 [History] Tamsulosin [Flomax] 0.4 mg PO DAILY 01/14/19 [History] Ubidecarenone [Co Q-10] 200 mg PO DAILY 01/14/19 [History] Vitamin B6-pyridOXINE 50 mg PO DAILY 01/14/19 [History] atorvaSTATin [Lipitor] 40 mg PO BEDTIME 01/14/19 [History] Calcium Carbonate [Tums Extra Strength] 750 mg PO Q2H PRN tab.chew 01/29/19 [Rx ] Furosemide 40 mg PO DAILY #30 tablet 01/29/19 [Rx] Lisinopril [Prinivil] 2.5 mg PO DAILY #30 tablet 01/29/19 [Rx] - Discharge Summary/Plan Comment DC Time >30 min.: No - Patient Data Vitals - Most Recent: Last Vital Signs Temp 36.6 C 01/29/19 06:00 Pulse 69 01/29/19 06:00 Resp 95 H 01/29/19 06:00 BP 94/51 L 01/29/19 06:00 Pulse Ox 95 01/29/19 06:00 Weight - Most Recent: 84.323 kg I&O - Last 24 hours: Intake & Output 01/28/19 01/29/19 01/29/19 22:59 06:59 14:59 Intake Total 240 320 Balance 240 320 Lab Results - Last 24 hrs: Laboratory Results - last 24 hr 01/28/19 Range/Units 13:15 Urine Color Dark yellow H (YELLOW) Urine Appearance Slightly cloudy H (CLEAR) Urine pH 5.5 (5.0-8.0) Ur Specific [place] 1.010 Urine Protein Negative (NEGATIVE) mg/dL Urine Glucose (UA) Negative (NEGATIVE) mg/dL Urine Ketones Negative (NEGATIVE) mg/dL Urine Occult Blood Negative (NEGATIVE) Urine Nitrite Negative (NEGATIVE) Urine Bilirubin Negative (NEGATIVE) Urine Urobilinogen 1.0 (0.2) EU/dL Ur Leukocyte Esterase Negative (NEGATIVE) Med Orders - Current: Current Medications Acetaminophen (Tylenol) 650 mg PO Q6H PRN PRN Reason: Pain Last Admin: 01/29/19 08:31 Dose: 650 mg Apixaban (Eliquis) 5 mg PO BID [facility] Last Admin: 01/29/19 08:31 Dose: 5 mg Aspirin (Halfprin) 81 mg PO DAILY [facility] Last Admin: 01/29/19 08:31 Dose: 81 mg Atorvastatin Calcium (Lipitor) 40 mg PO BEDTIME [facility] Last Admin: 01/28/19 20:54 Dose: 40 mg Calcium Carbonate/Glycine (Tums Extra Strength) 750 mg PO Q2H PRN PRN Reason: Dyspepsia Last Admin: 01/28/19 08:06 Dose: 750 mg Cholecalciferol (Vitamin D3) 1,000 units PO DAILY [facility] Last Admin: 01/29/19 08:31 Dose: 1,000 units Cyanocobalamin (Vitamin B12) 500 mcg PO DAILY [facility] Last Admin: 01/29/19 08:31 Dose: 500 mcg Docusate Sodium (Colace) 200 mg PO DAILY [facility] Last Admin: 01/29/19 08:31 Dose: 200 mg Ferrous Sulfate (Ferrous Sulfate) 325 mg PO BID [facility] Last Admin: 01/29/19 08:31 Dose: 325 mg Furosemide (Lasix) 60 mg PO BID@0600,1400 [facility] Last Admin: 01/28/19 14:38 Dose: Not Given Lisinopril (Prinivil) 2.5 mg PO BID [facility] Last Admin: 01/29/19 08:32 Dose: Not Given Metoprolol Succinate (Toprol Xl) 12.5 mg PO DAILY [facility] Last Admin: 01/29/19 08:32 Dose: Not Given Bicalutamide [ Casodex] 50mg (Own Supply) 0 mg PO DAILY [facility] Last Admin: 01/29/19 08:30 Dose: 50 mg Ubidecarenone [Co Q- 10] 200mg (Own Supply) 0 mg PO DAILY [facility] Last Admin: 01/29/19 08:30 Dose: 200 mg Oxybutynin Chloride (Oxybutynin) 5 mg PO BEDTIME [facility] Last Admin: 01/28/19 20:54 Dose: 5 mg Pyridoxine HCl (Vitamin B6-Pyridoxine) 50 mg PO DAILY [facility] Last Admin: 01/29/19 08:31 Dose: 50 mg Senna/Docusate Sodium (Senna Plus) 1 tab PO BID PRN PRN Reason: Constipation Last Admin: 01/29/19 08:31 Dose: 1 tab Tamsulosin HCl (Flomax) 0.4 mg PO DAILY [facility] Last Admin: 01/29/19 08:31 Dose: 0.4 mg Discontinued Medications Calcium Citrate (Calcium Citrate + D) 1 tab PO BID [facility] Last Admin: 01/22/19 09:28 Dose: 1 tab Fish Oil (Fish Oil) 1 gm PO TID [facility] Last Admin: 01/22/19 09:29 Dose: 1 gm Senna/Docusate Sodium (Senna Plus) 2 tab PO ONETIME ONE Stop: 01/18/19 12:16 Last Admin: 01/18/19 13:37 Dose: 2 tab Sodium Biphosphate/Sodium Phosphate (Fleet Enema) 133 ml RECTAL ONETIME ONE Stop: 01/18/19 18:50 Last Admin: 01/18/19 20:11 Dose: Not Given Sodium Biphosphate/Sodium Phosphate (Fleet Enema) 133 ml RECTAL ONETIME ONE Stop: 01/18/19 19:40 Last Admin: 01/18/19 20:05 Dose: Not Given Vitamin B Complex/Vit C/Vit E/Zinc (Stress Formula With Zinc) 1 tab PO TID [facility] Last Admin: 01/22/19 09:28 Dose: 1 tab *Q Meaningful Use (DIS) - VTE *Q VTE Anticoagulation Contraindications: Alternative [place] Request PT
[2019-01-29] MEDS: Oxybutynin 5 MG Tab PO SCH (20:42)
[2019-01-29] MEDS: atorvaSTATin 40 MG Tab PO SCH (20:42)
[2019-01-30] MEDS: UBIDECARENONE 200 MG PO SCH (07:37)
[2019-01-30] MEDS: Docusate Sodium 100 MG Cap PO SCH (07:38)
[2019-01-30] MEDS: Vitamin B6-pyridOXINE 50 MG Tab PO SCH (07:38)
[2019-01-30] MEDS: Aspirin 81 MG Tab.EC PO SCH (07:38)
[2019-01-30] MEDS: Apixaban 2.5 MG Tab PO SCH (07:38)
[2019-01-30] MEDS: Cholecalciferol (Vitamin D3) 1,000 Unit Tab PO SCH (07:38)
[2019-01-30] MEDS: Cyanocobalamin (Vitamin B12) 250 MCG Tab PO SCH (07:38)
[2019-01-30] MEDS: Acetaminophen 325 MG Tab PO PRN (07:39)
[2019-01-30] MEDS: Tamsulosin 0.4 MG Cap.ER PO SCH (07:39)
[2019-01-30] MEDS: Lisinopril 2.5 MG Tab PO SCH (07:39)
[2019-01-30] MEDS: Ferrous Sulfate 325 MG Tab PO SCH (07:39)
[2019-01-30] MEDS: Metoprolol Succinate 25 MG Tab.ER PO SCH (07:39)
== END 2019-01-30 09:00 | disposition home or self-care (01) | DRG 292 ==
LOC: VM.MS 11:29
PROVIDERS: ADMIT Family Medicine; ATTEND Family Medicine
DX: I11.0 Hypertensive heart disease with heart failure (principal); E87.1 Hypo-osmolality and hyponatremia; I50.23 Acute on chronic systolic (congestive) heart failure; I48.91 Unspecified atrial fibrillation; I25.10 Atherosclerotic heart disease of native coronary artery without angina pectoris; E78.5 Hyperlipidemia, unspecified; N40.0 Benign prostatic hyperplasia without lower urinary tract symptoms; Z85.46 Personal history of malignant neoplasm of prostate; Z79.82 Long term (current) use of aspirin; Z79.899 Other long term (current) drug therapy; I95.9 Hypotension, unspecified; E86.0 Dehydration; M19.90 Unspecified osteoarthritis, unspecified site; M85.80 Other specified disorders of bone density and structure, unspecified site; Z95.0 Presence of cardiac pacemaker; Z86.14 Personal history of Methicillin resistant Staphylococcus aureus infection; Z95.5 Presence of coronary angioplasty implant and graft; Z98.49 Cataract extraction status, unspecified eye
CPT/HCPCS: 36415; 80053; 81003; 83605; 83880; 85025; 86140; 97110-GP; 97116-GP; 97161-GP; 97165-GO; 97530-GP; 97535-GO; A9270-GY

== ENCOUNTER 2019-02-18 11:31 | Inpatient (IN) | payer MEDICARE ==
[2019-02-18] MEDS ORDERED: Ondansetron 4 MG Tab.DIS PO PRN (16:37)
[2019-02-18] MEDS ORDERED: Acetaminophen 325 MG Tab PO PRN ×2 (16:37→16:39)
[2019-02-18] MEDS ORDERED: Calcium Carbonate 750 MG Tab.Chew PO PRN (16:39)
[2019-02-18] MEDS ORDERED: Polyethylene Glycol 3350 Powder 17 GM Packet PO PRN (16:39)
[2019-02-18] MEDS: Oxybutynin 5 MG Tab PO SCH (19:41)
[2019-02-18] MEDS: atorvaSTATin 40 MG Tab PO SCH (19:41)
[2019-02-19 06:53] LABS: CHLORIDE,CL 99 mmol/L (98-107); SODIUM,NA 132 mmol/L (136-145)
[2019-02-19 06:55] LABS: ANION GAP 13.6 mmol/L (10-20)
[2019-02-19] MEDS: BICALUTAMIDE 50 MG PO SCH (08:38)
[2019-02-19] MEDS: Docusate Sodium 100 MG Cap PO SCH (08:39)
[2019-02-19] MEDS: Furosemide 20 MG Tab PO SCH (08:39)
[2019-02-19] MEDS: Multivitamins with Iron/Calcium/Folic Acid/Minerals Tab PO SCH (08:39)
[2019-02-19] MEDS: Apixaban 2.5 MG Tab PO SCH (08:39)
[2019-02-19] MEDS: Tamsulosin 0.4 MG Cap.ER PO SCH (08:39)
[2019-02-19] MEDS: Aspirin 81 MG Tab.EC PO SCH (08:39)
[2019-02-19] MEDS: Lisinopril 2.5 MG Tab PO SCH (08:40)
--- NOTE | 2019-02-19 11:03 | PCM.PN ---
- General Info Date of Service: 02/19/19 Admission Dx/Problem (Free Text): Subjective: Patient is feeling good. Basically back to baseline. Dyspnea and leg have improved. Tolerating full diet. Objective: Vital signs are stable, been afebrile for a good 48 hours now. Heart and lungs clear ext warm well perfused, chronic peripheral edema appears back to baseline, dusky weeping venous stasis changes without large amount of inflammation. Assessment and plan: Gram-negative bacteremia appears to be secondary to cellulitis of right leg. Cultures are still pending. Superficial wound grew Serratia I would suspect blood culture will grow similar but need definitive results before discharge. Possible discharge in a.m. if we have culture and sensitivity by then. I don't see any other focal GI or respiratory source of infection currently. - Patient Data Vitals - Most Recent: Last Vital Signs Temp 36.3 C 02/18/19 21:39 Pulse 100 02/18/19 21:39 Resp 30 H 02/18/19 21:39 BP 103/55 L 02/19/19 08:40 Pulse Ox 98 02/18/19 21:39 Weight - Most Recent: 85.185 kg I&O - Last 24 Hours: Intake & Output 02/18/19 02/19/19 02/19/19 22:59 06:59 14:59 Intake Total 120 100 420 Output Total 100 200 Balance 20 -100 420 Lab Results Last 24 Hours: Laboratory Results - last 24 hr 02/19/19 Range/Units 06:29 Sodium 132 L (136-145) mmol/L Potassium 4.6 (3.5-5.1) mmol/L Chloride 99 (98-107) mmol/L Carbon Dioxide 24 (21-32) mmol/L Anion Gap 13.6 (10-20) mmol/L BUN 26 H (7-18) mg/dL Creatinine 1.1 (0.70-1.30) mg/dL Est Cr Clr Drug Dosing TNP Estimated GFR (MDRD) > 60 Glucose 104 (74-106) mg/dL Calcium 7.8 L (8.5-10.1) mg/dL Med Orders - Current: Current Medications Acetaminophen (Tylenol) 650 mg PO Q4H PRN PRN Reason: Pain (Mild 1-3)/fever Apixaban (Eliquis) 5 mg PO DAILY [facility] Last Admin: 02/19/19 08:39 Dose: 5 mg Aspirin (Halfprin) 81 mg PO DAILY [facility] Last Admin: 02/19/19 08:39 Dose: 81 mg Atorvastatin Calcium (Lipitor) 40 mg PO BEDTIME [facility] Last Admin: 02/18/19 19:41 Dose: 40 mg Calcium Carbonate/Glycine (Tums Extra Strength) 750 mg PO Q2H PRN PRN Reason: Dyspepsia Docusate Sodium (Colace) 200 mg PO DAILY [facility] Last Admin: 02/19/19 08:39 Dose: 200 mg Furosemide (Lasix) 20 mg PO DAILY [facility] Last Admin: 02/19/19 08:39 Dose: 20 mg Lisinopril (Prinivil) 2.5 mg PO DAILY [facility] Last Admin: 02/19/19 08:40 Dose: 2.5 mg Multivitamins/Minerals (Thera M Plus) 1 tab PO DAILY [facility] Last Admin: 02/19/19 08:39 Dose: 1 tab Bicalutamide 50 Mg (*Own Med) 50 mg PO DAILY [facility] Last Admin: 02/19/19 08:38 Dose: 50 mg Ondansetron HCl (Zofran Odt) 4 mg PO Q6H PRN PRN Reason: nausea, able to take PO Oxybutynin Chloride (Oxybutynin) 5 mg PO BEDTIME [facility] Last Admin: 02/18/19 19:41 Dose: 5 mg Polyethylene Glycol (Miralax) 17 gm PO DAILY PRN PRN Reason: Constipation Tamsulosin HCl (Flomax) 0.4 mg PO DAILY [facility] Last Admin: 02/19/19 08:39 Dose: 0.4 mg - Problem List Review Problem List Initiated/Reviewed/Updated: Yes - My Orders Last 24 Hours: My Active Orders 02/18/19 15:08 Admission Status [Patient Status] [ADT] Routine 02/18/19 16:37 Patient Status [ADT] Routine Ambulate [RC] ASDIRECTED Oxygen Therapy [RC] PRN Up With Assistance [RC] ASDIRECTED VTE/DVT Education [RC] PER UNIT ROUTINE Vital Signs [RC] PER UNIT ROUTINE PT Evaluation and Treatment [CONS] Routine Acetaminophen [Tylenol] 650 mg PO Q4H PRN Ondansetron [Zofran ODT] 4 mg PO Q6H PRN Resuscitation Status Routine 02/18/19 16:39 Calcium Carbonate [Tums Extra Strength] 750 mg PO Q2H PRN Polyethylene Glycol 3350 [MiraLAX] 17 gm PO DAILY PRN 02/18/19 20:00 Oxybutynin 5 mg PO BEDTIME atorvaSTATin [Lipitor] 40 mg PO BEDTIME 02/18/19 Dinner Regular Diet [DIET] 02/19/19 06:29 PSA-EIA [REF] Routine 02/19/19 08:00 Apixaban [Eliquis] 5 mg PO DAILY Aspirin [Halfprin] 81 mg PO DAILY Bicalutamide [Casodex] 50 mg PO DAILY Docusate Sodium [Colace] 200 mg PO DAILY Furosemide [Lasix] 20 mg PO DAILY Lisinopril [Prinivil] 2.5 mg PO DAILY Multivitamins w-Iron/Ca/FA/Min [Thera M Plus] 1 tab PO DAILY Tamsulosin [Flomax] 0.4 mg PO DAILY
--- NOTE | 2019-02-19 11:17 | PCM.HP ---
H&P History of Present Illness - General Date of Service: 02/18/19 Admit Problem/Dx: Subjective: Patient is feeling good. Basically back to baseline. Dyspnea and leg have improved. Tolerating full diet. Objective: Vital signs are stable, been afebrile for a good 48 hours now. Heart and lungs clear ext warm well perfused, chronic peripheral edema appears back to baseline, dusky weeping venous stasis changes without large amount of inflammation. Assessment and plan: Gram-negative bacteremia appears to be secondary to cellulitis of right leg. Cultures are still pending. Superficial wound grew Serratia I would suspect blood culture will grow similar but need definitive results before discharge. Possible discharge in a.m. if we have culture and sensitivity by then. I don't see any other focal GI or respiratory source of infection currently. - History of Present Illness Initial Comments - Free Text/Narative: HPI: Discharge today from acute to swing bed. Was abscess of living priorly too weak to go back currently. Family is considering palliative versus hospice care. Recently more weak from worsening hyponatremia and probably heart failure. Also has known advancing prostate cancer and secondary anemia. His sodium has improved on Lasix and his renal function is stable. Remains moderately dyspneic. Past medical history prostate cancer, osteoarthritis, coronary artery disease status post stenting, atrial fibrillation, systolic heart failure, hyponatremia. Medications: Lasix, Elliquis, Lipitor, multivitamin with iron, Miralax, aspirin , Flomax, Ditropan, Casodex, Tylenol, Colace, prolia. No known drug allergies. , Nonsmoker. Review of systems, denies fever denies chest pain denies vomiting denies abdominal pain. Physical exam, vital signs are normal currently, he is requiring a couple liters of oxygen however. He is chronically pale in appearance. Mild tachypnea and dyspnea, lungs otherwise clear, heart regular rate and rhythm, abdomen soft nontender, chimneys warm well perfused without edema. assessment and plan: Swing bed for PT consult and placement recommendations. Will preapproval for longterm if needed, ideally did like to go back to assisted living. Palliative versus hospice care. I think his best chance at remaining out of heart failure and worsening hyponatremia is low-dose Lasix 20 mg plus low-dose Lasix 2.5 mg. Beta jerzy stopped because of his hypotension. vital signs and creatinine currently stable. - Related Data Allergies/Adverse Reactions: Allergies Allergy/AdvReac Type Severity Reaction Status Date / Time No Known Allergies Allergy Verified 02/15/19 12:15 Home Medications: Home Meds Acetaminophen 650 mg PO Q6H PRN 01/14/19 [History] Apixaban [Eliquis] 5 mg PO DAILY 01/14/19 [History] Aspirin [Halfprin] 81 mg PO DAILY 01/14/19 [History] Bicalutamide [Casodex] 50 mg PO DAILY 01/14/19 [History] Docusate Sodium 200 mg PO DAILY 01/14/19 [History] Metoprolol Succinate [Toprol XL] 12.5 mg PO DAILY 01/14/19 [History] Oxybutynin 5 mg PO BEDTIME 01/14/19 [History] Tamsulosin [Flomax] 0.4 mg PO DAILY 01/14/19 [History] atorvaSTATin [Lipitor] 40 mg PO BEDTIME 01/14/19 [History] Calcium Carbonate [Tums Extra Strength] 750 mg PO Q2H PRN tab.chew 01/29/19 [Rx ] Lisinopril [Prinivil] 2.5 mg PO DAILY #30 tablet 01/29/19 [Rx] Furosemide 30 mg PO DAILY 02/15/19 [History] Multivitamin with Iron [Multivitamins with Iron] 1 each PO DAILY 02/15/19 [ History] Polyethylene Glycol 3350 [MiraLAX] 17 gm PO DAILY PRN 02/15/19 [History] Past Medical History HEENT History: Reports: Glaucoma Cardiovascular History: Reports: CAD, Heart Failure, High Cholesterol, Hypertension, Pacemaker, Stents, Other (See Below) Other Cardiovascular History: bradycardia Genitourinary History: Reports: Prostate Disorder, Other (See Below) Other Genitourinary History: urinary frequency; lower urinary tract symptoms Musculoskeletal History: Reports: Osteoarthritis, Other (See Below) Other Musculoskeletal History: lower knee pain; osteopenia Endocrine/Metabolic History: Reports: Osteopenia Oncologic (Cancer) History: Reports: Prostate Dermatologic History: Reports: Other (See Below) Other Dermatologic History: actinic keratosis - Infectious Disease History Infectious Disease History: Reports: MRSA - Past Surgical History HEENT Surgical History: Reports: Cataract Surgery Cardiovascular Surgical History: Reports: Coronary Artery Stent, Other (See Below) Other Cardiovascular Surgeries/Procedures: angioplasty Male Surgical History: Reports: Prostate Biopsy, Other (See Below) Other Male Surgeries/Procedures: breast biopsy Social & Family History - Caffeine Use Caffeine Use: Reports: Coffee H&P Review of Systems - Review of Systems: Review Of Systems: See Below Exam - Exam Exam: See Below - Vital Signs Vital Signs: Last Vital Signs Temp 36.3 C 02/18/19 21:39 Pulse 100 02/18/19 21:39 Resp 30 H 02/18/19 21:39 BP 103/55 L 02/19/19 08:40 Pulse Ox 98 02/18/19 21:39 Weight: 85.185 kg - Patient Data Lab Results Last 24 hrs: Laboratory Results - last 24 hr 02/19/19 Range/Units 06:29 Sodium 132 L (136-145) mmol/L Potassium 4.6 (3.5-5.1) mmol/L Chloride 99 (98-107) mmol/L Carbon Dioxide 24 (21-32) mmol/L Anion Gap 13.6 (10-20) mmol/L BUN 26 H (7-18) mg/dL Creatinine 1.1 (0.70-1.30) mg/dL Est Cr Clr Drug Dosing TNP Estimated GFR (MDRD) > 60 Glucose 104 (74-106) mg/dL Calcium 7.8 L (8.5-10.1) mg/dL Result Diagrams: 02/19/19 06:29 Problem List Initiated/Reviewed/Updated: Yes Orders Last 24hrs: Active Orders 24 hr Category Date Time Status Admission Status [Patient Status] [ADT] Routine ADT 02/18/19 15:08 Active Patient Status [ADT] Routine ADT 02/18/19 16:37 Active Ambulate [RC] ASDIRECTED Care 02/18/19 16:37 Active Oxygen Therapy [RC] PRN Care 02/18/19 16:37 Active Up With Assistance [RC] ASDIRECTED Care 02/18/19 16:37 Active VTE/DVT Education [RC] PER UNIT ROUTINE Care 02/18/19 16:37 Active Vital Signs [RC] PER UNIT ROUTINE Care 02/18/19 16:37 Active PT Evaluation and Treatment [CONS] Routine Cons 02/18/19 16:37 Active Regular Diet [DIET] Diet 02/18/19 Dinner Active PSA-EIA [REF] Routine Lab 02/19/19 06:29 Received Acetaminophen [Tylenol] Med 02/18/19 16:37 Active 650 mg PO Q4H PRN Apixaban [Eliquis] Med 02/19/19 08:00 Active 5 mg PO DAILY Aspirin [Halfprin] Med 02/19/19 08:00 Active 81 mg PO DAILY Bicalutamide [Casodex] Med 02/19/19 08:00 Active 50 mg PO DAILY Calcium Carbonate [Tums Extra Strength] Med 02/18/19 16:39 Active 750 mg PO Q2H PRN Docusate Sodium [Colace] Med 02/19/19 08:00 Active 200 mg PO DAILY Furosemide [Lasix] Med 02/19/19 08:00 Active 20 mg PO DAILY Lisinopril [Prinivil] Med 02/19/19 08:00 Active 2.5 mg PO DAILY Multivitamins w-Iron/Ca/FA/Min [Thera M Plus] Med 02/19/19 08:00 Active 1 tab PO DAILY Ondansetron [Zofran ODT] Med 02/18/19 16:37 Active 4 mg PO Q6H PRN Oxybutynin Med 02/18/19 20:00 Active 5 mg PO BEDTIME Polyethylene Glycol 3350 [MiraLAX] Med 02/18/19 16:39 Active 17 gm PO DAILY PRN Tamsulosin [Flomax] Med 02/19/19 08:00 Active 0.4 mg PO DAILY atorvaSTATin [Lipitor] Med 02/18/19 20:00 Active 40 mg PO BEDTIME Resuscitation Status Routine Resus Stat 02/18/19 16:37 Ordered Medication Orders Acetaminophen (Tylenol) 650 mg PO Q4H PRN PRN Reason: Pain (Mild 1-3)/fever Apixaban (Eliquis) 5 mg PO DAILY [facility] Last Admin: 02/19/19 08:39 Dose: 5 mg Aspirin (Halfprin) 81 mg PO DAILY [facility] Last Admin: 02/19/19 08:39 Dose: 81 mg Atorvastatin Calcium (Lipitor) 40 mg PO BEDTIME [facility] Last Admin: 02/18/19 19:41 Dose: 40 mg Calcium Carbonate/Glycine (Tums Extra Strength) 750 mg PO Q2H PRN PRN Reason: Dyspepsia Docusate Sodium (Colace) 200 mg PO DAILY [facility] Last Admin: 02/19/19 08:39 Dose: 200 mg Furosemide (Lasix) 20 mg PO DAILY [facility] Last Admin: 02/19/19 08:39 Dose: 20 mg Lisinopril (Prinivil) 2.5 mg PO DAILY [facility] Last Admin: 02/19/19 08:40 Dose: 2.5 mg Multivitamins/Minerals (Thera M Plus) 1 tab PO DAILY [facility] Last Admin: 02/19/19 08:39 Dose: 1 tab Bicalutamide 50 Mg (*Own Med) 50 mg PO DAILY [facility] Last Admin: 02/19/19 08:38 Dose: 50 mg Ondansetron HCl (Zofran Odt) 4 mg PO Q6H PRN PRN Reason: nausea, able to take PO Oxybutynin Chloride (Oxybutynin) 5 mg PO BEDTIME [facility] Last Admin: 02/18/19 19:41 Dose: 5 mg Polyethylene Glycol (Miralax) 17 gm PO DAILY PRN PRN Reason: Constipation Tamsulosin HCl (Flomax) 0.4 mg PO DAILY [facility] Last Admin: 02/19/19 08:39 Dose: 0.4 mg
[2019-02-19] MEDS: Oxybutynin 5 MG Tab PO SCH (19:44)
[2019-02-19] MEDS: atorvaSTATin 40 MG Tab PO SCH (19:44)
[2019-02-20] MEDS: Docusate Sodium 100 MG Cap PO SCH (07:54)
[2019-02-20] MEDS: BICALUTAMIDE 50 MG PO SCH (07:54)
[2019-02-20] MEDS: Lisinopril 2.5 MG Tab PO SCH (07:55)
[2019-02-20] MEDS: Tamsulosin 0.4 MG Cap.ER PO SCH (07:55)
[2019-02-20] MEDS: Apixaban 2.5 MG Tab PO SCH (07:55)
[2019-02-20] MEDS: Multivitamins with Iron/Calcium/Folic Acid/Minerals Tab PO SCH (07:55)
[2019-02-20] MEDS: Furosemide 20 MG Tab PO SCH (07:55)
[2019-02-20] MEDS: Aspirin 81 MG Tab.EC PO SCH (07:55)
[2019-02-20] MEDS: Oxybutynin 5 MG Tab PO SCH (19:19)
[2019-02-20] MEDS: atorvaSTATin 40 MG Tab PO SCH (19:19)
[2019-02-21] MEDS: BICALUTAMIDE 50 MG PO SCH (07:35)
[2019-02-21] MEDS: Apixaban 2.5 MG Tab PO SCH (07:35)
[2019-02-21] MEDS: Docusate Sodium 100 MG Cap PO SCH (07:35)
[2019-02-21] MEDS: Aspirin 81 MG Tab.EC PO SCH (07:36)
[2019-02-21] MEDS: Furosemide 20 MG Tab PO SCH (07:36)
[2019-02-21] MEDS: Tamsulosin 0.4 MG Cap.ER PO SCH (07:36)
[2019-02-21] MEDS: Multivitamins with Iron/Calcium/Folic Acid/Minerals Tab PO SCH (07:37)
[2019-02-21] MEDS: Lisinopril 2.5 MG Tab PO SCH (07:37)
[2019-02-21] MEDS: atorvaSTATin 40 MG Tab PO SCH (19:31)
[2019-02-21] MEDS: Oxybutynin 5 MG Tab PO SCH (19:31)
[2019-02-22] MEDS: Apixaban 2.5 MG Tab PO SCH (07:39)
[2019-02-22] MEDS: Aspirin 81 MG Tab.EC PO SCH (07:39)
[2019-02-22] MEDS: Multivitamins with Iron/Calcium/Folic Acid/Minerals Tab PO SCH (07:39)
[2019-02-22] MEDS: Furosemide 20 MG Tab PO SCH (07:39)
[2019-02-22] MEDS: BICALUTAMIDE 50 MG PO SCH (07:40)
[2019-02-22] MEDS: Docusate Sodium 100 MG Cap PO SCH (07:40)
[2019-02-22] MEDS: Tamsulosin 0.4 MG Cap.ER PO SCH (07:40)
[2019-02-22] MEDS: Lisinopril 2.5 MG Tab PO SCH (07:41)
[2019-02-22] MEDS: Oxybutynin 5 MG Tab PO SCH (19:43)
[2019-02-22] MEDS: atorvaSTATin 40 MG Tab PO SCH (19:43)
[2019-02-23] MEDS: Multivitamins with Iron/Calcium/Folic Acid/Minerals Tab PO SCH (07:31)
[2019-02-23] MEDS: Aspirin 81 MG Tab.EC PO SCH (07:31)
[2019-02-23] MEDS: Docusate Sodium 100 MG Cap PO SCH (07:31)
[2019-02-23] MEDS: Tamsulosin 0.4 MG Cap.ER PO SCH (07:32)
[2019-02-23] MEDS: BICALUTAMIDE 50 MG PO SCH (07:32)
[2019-02-23] MEDS: Apixaban 2.5 MG Tab PO SCH (07:32)
[2019-02-23] MEDS: Furosemide 20 MG Tab PO SCH (07:32)
[2019-02-23] MEDS: Lisinopril 2.5 MG Tab PO SCH (07:33)
[2019-02-23] MEDS: Oxybutynin 5 MG Tab PO SCH (19:14)
[2019-02-23] MEDS: atorvaSTATin 40 MG Tab PO SCH (19:14)
[2019-02-24] MEDS: BICALUTAMIDE 50 MG PO SCH (07:43)
[2019-02-24] MEDS: Apixaban 2.5 MG Tab PO SCH (07:43)
[2019-02-24] MEDS: Aspirin 81 MG Tab.EC PO SCH (07:44)
[2019-02-24] MEDS: Multivitamins with Iron/Calcium/Folic Acid/Minerals Tab PO SCH (07:44)
[2019-02-24] MEDS: Furosemide 20 MG Tab PO SCH (07:44)
[2019-02-24] MEDS: Docusate Sodium 100 MG Cap PO SCH (07:44)
[2019-02-24] MEDS: Tamsulosin 0.4 MG Cap.ER PO SCH (07:44)
[2019-02-24] MEDS: Lisinopril 2.5 MG Tab PO SCH (07:44)
[2019-02-24] MEDS: Oxybutynin 5 MG Tab PO SCH (19:40)
[2019-02-24] MEDS: atorvaSTATin 40 MG Tab PO SCH (19:40)
[2019-02-25] MEDS: Furosemide 20 MG Tab PO SCH (07:42)
[2019-02-25] MEDS: Tamsulosin 0.4 MG Cap.ER PO SCH (07:42)
[2019-02-25] MEDS: BICALUTAMIDE 50 MG PO SCH (07:42)
[2019-02-25] MEDS: Docusate Sodium 100 MG Cap PO SCH (07:42)
[2019-02-25] MEDS: Apixaban 2.5 MG Tab PO SCH (07:43)
[2019-02-25] MEDS: Multivitamins with Iron/Calcium/Folic Acid/Minerals Tab PO SCH (07:43)
[2019-02-25] MEDS: Lisinopril 2.5 MG Tab PO SCH (07:43)
[2019-02-25] MEDS: Aspirin 81 MG Tab.EC PO SCH (07:43)
[2019-02-25] MEDS: Oxybutynin 5 MG Tab PO SCH (19:45)
[2019-02-25] MEDS: atorvaSTATin 40 MG Tab PO SCH (19:45)
[2019-02-26] MEDS: Aspirin 81 MG Tab.EC PO SCH (08:08)
[2019-02-26] MEDS: Tamsulosin 0.4 MG Cap.ER PO SCH (08:08)
[2019-02-26] MEDS: Multivitamins with Iron/Calcium/Folic Acid/Minerals Tab PO SCH (08:08)
[2019-02-26] MEDS: Docusate Sodium 100 MG Cap PO SCH (08:09)
[2019-02-26] MEDS: Furosemide 20 MG Tab PO SCH (08:09)
[2019-02-26] MEDS: Apixaban 2.5 MG Tab PO SCH (08:09)
[2019-02-26] MEDS: Lisinopril 2.5 MG Tab PO SCH (08:10)
[2019-02-26] MEDS: BICALUTAMIDE 50 MG PO SCH (08:11)
[2019-02-26] MEDS: Oxybutynin 5 MG Tab PO SCH (22:15)
[2019-02-26] MEDS: atorvaSTATin 40 MG Tab PO SCH (22:15)
[2019-02-27] MEDS: Docusate Sodium 100 MG Cap PO SCH (07:46)
[2019-02-27] MEDS: BICALUTAMIDE 50 MG PO SCH (07:46)
[2019-02-27] MEDS: Tamsulosin 0.4 MG Cap.ER PO SCH (07:49)
[2019-02-27] MEDS: Lisinopril 2.5 MG Tab PO SCH (07:49)
[2019-02-27] MEDS: Multivitamins with Iron/Calcium/Folic Acid/Minerals Tab PO SCH (07:49)
[2019-02-27] MEDS: Apixaban 2.5 MG Tab PO SCH (07:49)
[2019-02-27] MEDS: Aspirin 81 MG Tab.EC PO SCH (07:50)
[2019-02-27] MEDS: Furosemide 20 MG Tab PO SCH (07:50)
[2019-02-27] MEDS: Oxybutynin 5 MG Tab PO SCH (19:48)
[2019-02-27] MEDS: atorvaSTATin 40 MG Tab PO SCH (19:48)
[2019-02-28] MEDS: Aspirin 81 MG Tab.EC PO SCH (08:10)
[2019-02-28] MEDS: Multivitamins with Iron/Calcium/Folic Acid/Minerals Tab PO SCH (08:10)
[2019-02-28] MEDS: Furosemide 20 MG Tab PO SCH (08:10)
[2019-02-28] MEDS: Tamsulosin 0.4 MG Cap.ER PO SCH (08:10)
[2019-02-28] MEDS: Apixaban 2.5 MG Tab PO SCH (08:10)
[2019-02-28] MEDS: Lisinopril 2.5 MG Tab PO SCH (08:10)
[2019-02-28] MEDS: BICALUTAMIDE 50 MG PO SCH (08:10)
[2019-02-28] MEDS: Docusate Sodium 100 MG Cap PO SCH (08:10)
[2019-02-28] MEDS: Oxybutynin 5 MG Tab PO SCH (20:37)
[2019-02-28] MEDS: atorvaSTATin 40 MG Tab PO SCH (20:37)
[2019-03-01] MEDS: Apixaban 2.5 MG Tab PO SCH (08:42)
[2019-03-01] MEDS: Docusate Sodium 100 MG Cap PO SCH (08:42)
[2019-03-01] MEDS: Multivitamins with Iron/Calcium/Folic Acid/Minerals Tab PO SCH (08:43)
[2019-03-01] MEDS: Furosemide 20 MG Tab PO SCH (08:43)
[2019-03-01] MEDS: Aspirin 81 MG Tab.EC PO SCH (08:43)
[2019-03-01] MEDS: Tamsulosin 0.4 MG Cap.ER PO SCH (08:43)
[2019-03-01] MEDS: Lisinopril 2.5 MG Tab PO SCH (08:45)
[2019-03-01] MEDS: BICALUTAMIDE 50 MG PO SCH (08:46)
[2019-03-01] MEDS: Oxybutynin 5 MG Tab PO SCH (19:32)
[2019-03-01] MEDS: atorvaSTATin 40 MG Tab PO SCH (19:32)
[2019-03-02] MEDS: Apixaban 2.5 MG Tab PO SCH (07:27)
[2019-03-02] MEDS: Docusate Sodium 100 MG Cap PO SCH (07:27)
[2019-03-02] MEDS: Tamsulosin 0.4 MG Cap.ER PO SCH (07:27)
[2019-03-02] MEDS: BICALUTAMIDE 50 MG PO SCH (07:28)
[2019-03-02] MEDS: Furosemide 20 MG Tab PO SCH (07:28)
[2019-03-02] MEDS: Aspirin 81 MG Tab.EC PO SCH (07:28)
[2019-03-02] MEDS: Multivitamins with Iron/Calcium/Folic Acid/Minerals Tab PO SCH (07:28)
[2019-03-02] MEDS: Lisinopril 2.5 MG Tab PO SCH (07:29)
[2019-03-02] MEDS: atorvaSTATin 40 MG Tab PO SCH (19:24)
[2019-03-02] MEDS: Oxybutynin 5 MG Tab PO SCH (19:24)
[2019-03-03] MEDS: BICALUTAMIDE 50 MG PO SCH (08:03)
[2019-03-03] MEDS: Apixaban 2.5 MG Tab PO SCH (08:04)
[2019-03-03] MEDS: Furosemide 20 MG Tab PO SCH (08:04)
[2019-03-03] MEDS: Lisinopril 2.5 MG Tab PO SCH (08:04)
[2019-03-03] MEDS: Docusate Sodium 100 MG Cap PO SCH (08:04)
[2019-03-03] MEDS: Multivitamins with Iron/Calcium/Folic Acid/Minerals Tab PO SCH (08:04)
[2019-03-03] MEDS: Aspirin 81 MG Tab.EC PO SCH (08:04)
[2019-03-03] MEDS: Tamsulosin 0.4 MG Cap.ER PO SCH (08:04)
[2019-03-03] MEDS: atorvaSTATin 40 MG Tab PO SCH (19:35)
[2019-03-03] MEDS: Oxybutynin 5 MG Tab PO SCH (19:36)
[2019-03-04] MEDS: Apixaban 2.5 MG Tab PO SCH (08:17)
[2019-03-04] MEDS: Docusate Sodium 100 MG Cap PO SCH (08:17)
[2019-03-04] MEDS: Multivitamins with Iron/Calcium/Folic Acid/Minerals Tab PO SCH (08:17)
[2019-03-04] MEDS: Furosemide 20 MG Tab PO SCH (08:17)
[2019-03-04] MEDS: BICALUTAMIDE 50 MG PO SCH (08:17)
[2019-03-04] MEDS: Tamsulosin 0.4 MG Cap.ER PO SCH (08:17)
[2019-03-04] MEDS: Aspirin 81 MG Tab.EC PO SCH (08:17)
[2019-03-04] MEDS: Lisinopril 2.5 MG Tab PO SCH (08:19)
[2019-03-04] MEDS: atorvaSTATin 40 MG Tab PO SCH (20:01)
[2019-03-04] MEDS: Oxybutynin 5 MG Tab PO SCH (20:14)
[2019-03-05 06:49] LABS: CHLORIDE,CL 100 mmol/L (98-107); SODIUM,NA 132 mmol/L (136-145)
[2019-03-05] MEDS: Lisinopril 2.5 MG Tab PO SCH (08:28)
[2019-03-05] MEDS: Apixaban 2.5 MG Tab PO SCH (08:28)
[2019-03-05] MEDS: Tamsulosin 0.4 MG Cap.ER PO SCH (08:29)
[2019-03-05] MEDS: Multivitamins with Iron/Calcium/Folic Acid/Minerals Tab PO SCH (08:29)
[2019-03-05] MEDS: Furosemide 20 MG Tab PO SCH (08:29)
[2019-03-05] MEDS: Aspirin 81 MG Tab.EC PO SCH (08:29)
[2019-03-05] MEDS: Docusate Sodium 100 MG Cap PO SCH (08:29)
[2019-03-05] MEDS: BICALUTAMIDE 50 MG PO SCH (09:33)
--- NOTE | 2019-03-05 15:45 | PCM.DCSUM1 ---
Discharge Summary - Hospital Course HPI Initial Comments: Patient was admitted to swing bed after acute admission for shortness of breath weakness deconditioning. secondary to CHF and CA. Still requiring some oxygen by nasal cannula. His blood pressures stabilized as has chemistry sodium creatinine. Tolerating minimal ambulation with walker. He is on low-dose lisinopril plus Lasix. We attempted to decrease these in the past when he was hypotensive and then he started retaining fluid and becoming symptomatically hyponatremic. He also has prostate cancer which has failed casodex, PSA up to 29, has quadrupled past five months, presumably this is metastatic or on its way there. Patient's plan is discharge to care center where he can get 24 hour assistance with ADLs given his severe deconditioning. He has ejection fraction of 25%, he has opted not to undergo any aggressive intervention. Code level II. 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 Dr. Huffman will follow him in the intermediate. - Discharge Data Discharge Date: 03/05/19 Discharge Disposition: Home, Self-Care 01 Condition: Good - Patient Summary/Data Consults: Consultations 02/18/19 16:37 PT Evaluation and Treatment [CONS] Routine - Discharge Plan *PRESCRIPTION DRUG MONITORING PROGRAM REVIEWED*: Not Applicable *COPY OF PRESCRIPTION DRUG MONITORING REPORT IN PATIENT TERE: Not Applicable Home Medications: Home Meds Acetaminophen 650 mg PO Q6H PRN 01/14/19 [History] Apixaban [Eliquis] 5 mg PO DAILY 01/14/19 [History] Bicalutamide [Casodex] 50 mg PO DAILY 01/14/19 [History] Docusate Sodium 200 mg PO DAILY 01/14/19 [History] Oxybutynin 5 mg PO BEDTIME 01/14/19 [History] Tamsulosin [Flomax] 0.4 mg PO DAILY 01/14/19 [History] atorvaSTATin [Lipitor] 40 mg PO BEDTIME 01/14/19 [History] Calcium Carbonate [Tums Extra Strength] 750 mg PO Q2H PRN tab.chew 01/29/19 [Rx ] Lisinopril [Prinivil] 2.5 mg PO DAILY #30 tablet 01/29/19 [Rx] Furosemide 30 mg PO DAILY 02/15/19 [History] Multivitamin with Iron [Multivitamins with Iron] 1 each PO DAILY 02/15/19 [ History] Polyethylene Glycol 3350 [MiraLAX] 17 gm PO DAILY PRN 02/15/19 [History] Acetaminophen [Tylenol] 650 mg PO Q4H PRN tablet 03/05/19 [Rx] - Discharge Summary/Plan Comment DC Time >30 min.: No - Patient Data Vitals - Most Recent: Last Vital Signs Temp 36.5 C 03/05/19 06:00 Pulse 89 03/05/19 06:00 Resp 18 03/05/19 06:00 BP 110/62 03/05/19 08:28 Pulse Ox 94 L 03/05/19 06:00 Weight - Most Recent: 86.818 kg I&O - Last 24 hours: Intake & Output 03/05/19 03/05/19 03/05/19 06:59 14:59 22:59 Intake Total 480 Balance 480 Lab Results - Last 24 hrs: Laboratory Results - last 24 hr 03/05/19 Range/Units 06:15 Sodium 132 L (136-145) mmol/L Potassium 5.0 (3.5-5.1) mmol/L Chloride 100 (98-107) mmol/L Carbon Dioxide 24 (21-32) mmol/L Anion Gap 13.0 (10-20) mmol/L BUN 25 H (7-18) mg/dL Creatinine 1.1 (0.70-1.30) mg/dL Est Cr Clr Drug Dosing 49.77 mL/min Estimated GFR (MDRD) > 60 Glucose 97 (74-106) mg/dL Calcium 7.8 L (8.5-10.1) mg/dL Corrected Calcium 9.00 (8.5-10.1) mg/dL Total Bilirubin 0.4 (0.2-1.0) mg/dL AST 16 (15-37) U/L ALT 21 (16-63) U/L Alkaline Phosphatase 79 (46-116) U/L Total Protein 6.3 L (6.4-8.2) g/dL Albumin 2.5 L (3.4-5.0) g/dL Globulin 3.8 Albumin/Globulin Ratio 0.66 Med Orders - Current: Current Medications Acetaminophen (Tylenol) 650 mg PO Q4H PRN PRN Reason: Pain (Mild 1-3)/fever Apixaban (Eliquis) 5 mg PO DAILY [facility] Last Admin: 03/05/19 08:28 Dose: 5 mg Aspirin (Halfprin) 81 mg PO DAILY [facility] Last Admin: 03/05/19 08:29 Dose: 81 mg Atorvastatin Calcium (Lipitor) 40 mg PO BEDTIME [facility] Last Admin: 03/04/19 20:01 Dose: 40 mg Calcium Carbonate/Glycine (Tums Extra Strength) 750 mg PO Q2H PRN PRN Reason: Dyspepsia Docusate Sodium (Colace) 200 mg PO DAILY [facility] Last Admin: 03/05/19 08:29 Dose: 200 mg Furosemide (Lasix) 20 mg PO DAILY [facility] Last Admin: 03/05/19 08:29 Dose: 20 mg Lisinopril (Prinivil) 2.5 mg PO DAILY [facility] Last Admin: 03/05/19 08:28 Dose: 2.5 mg Multivitamins/Minerals (Thera M Plus) 1 tab PO DAILY [facility] Last Admin: 03/05/19 08:29 Dose: 1 tab Bicalutamide 50 Mg (*Own Med) 50 mg PO DAILY [facility] Last Admin: 03/05/19 09:33 Dose: 50 mg Ondansetron HCl (Zofran Odt) 4 mg PO Q6H PRN PRN Reason: nausea, able to take PO Oxybutynin Chloride (Oxybutynin) 5 mg PO BEDTIME [facility] Last Admin: 03/04/19 20:14 Dose: 5 mg Polyethylene Glycol (Miralax) 17 gm PO DAILY PRN PRN Reason: Constipation Tamsulosin HCl (Flomax) 0.4 mg PO DAILY [facility] Last Admin: 03/05/19 08:29 Dose: 0.4 mg
[2019-03-05] MEDS: atorvaSTATin 40 MG Tab PO SCH (19:44)
[2019-03-05] MEDS: Oxybutynin 5 MG Tab PO SCH (19:45)
[2019-03-06] MEDS: Aspirin 81 MG Tab.EC PO SCH (08:33)
[2019-03-06] MEDS: Furosemide 20 MG Tab PO SCH (08:33)
[2019-03-06] MEDS: BICALUTAMIDE 50 MG PO SCH (08:33)
[2019-03-06] MEDS: Docusate Sodium 100 MG Cap PO SCH (08:33)
[2019-03-06] MEDS: Multivitamins with Iron/Calcium/Folic Acid/Minerals Tab PO SCH (08:33)
[2019-03-06] MEDS: Apixaban 2.5 MG Tab PO SCH (08:33)
[2019-03-06] MEDS: Tamsulosin 0.4 MG Cap.ER PO SCH (08:33)
[2019-03-06] MEDS: Lisinopril 2.5 MG Tab PO SCH (08:34)
== END 2019-03-06 10:00 | disposition home or self-care (01) | DRG 948 ==
LOC: VM.MS 15:15
PROVIDERS: ADMIT Family Medicine; ATTEND Family Medicine
DX: R53.1 Weakness (principal); C61 Malignant neoplasm of prostate; D64.9 Anemia, unspecified; M19.90 Unspecified osteoarthritis, unspecified site; I25.10 Atherosclerotic heart disease of native coronary artery without angina pectoris; I48.91 Unspecified atrial fibrillation; E78.00 Pure hypercholesterolemia, unspecified; I10 Essential (primary) hypertension; Z95.5 Presence of coronary angioplasty implant and graft; Z79.82 Long term (current) use of aspirin; Z86.14 Personal history of Methicillin resistant Staphylococcus aureus infection; Z95.0 Presence of cardiac pacemaker
CPT/HCPCS: 36415; 80048; 80053; 84153; 94760; 97110-GP; 97116-GP; 97530-GP; A9270-GY